=== PATIENT | female | born 1950 | race Caucasian/White ===

== ENCOUNTER 2018-08-01 09:36 | Outpatient (CLI) | payer MEDICARE, OTHER ==
--- NOTE | 2018-08-01 09:58 | RAD ---
LEFT WRIST RADIOGRAPHS FOUR VIEWS: Date: 08-01-18 Provided Clinical History: Pain status post injury. FINDINGS: There is no evidence of fracture or other acute osseous abnormality. If there is persistent clinical concern, conservative management and follow up imaging are advised. IMPRESSION: As above. POS: [facility]
== END 2018-08-01 09:37 | disposition home or self-care (01) ==
LOC: MADRAD 09:36
PROVIDERS: ATTEND Internal Medicine
DX: M25.532 Pain in left wrist (principal)